=== PATIENT | male | born 1945 | race Caucasian/White ===

== ENCOUNTER 2018-10-01 09:07 | Outpatient (REF) | payer MEDICARE, SELFPAY ==
[2018-10-01 20:58] LABS: ALT 29 U/L (12-78); AST 23 U/L (15-37); Albumin 3.8 g/dL (3.4-5.0); Alkaline Phosphatase 72 U/L (46-116); Anion Gap 10.4 mmol/L (3-11); BUN 23 mg/dL (7-18); Bilirubin, Total 0.6 mg/dL (0.2-1.0); CO2 27.6 mmol/L (21.0-32.0); CREATININE 1.43 mg/dL (0.70-1.30); Calcium 9.4 mg/dL (8.5-10.1); Chloride 104 mmol/L (98-107); Cholesterol 192 mg/dL (50-200); Estimated GFR 48.21 (mL/min/1.73m2); Glucose 99 mg/dL (70-100); HDL Cholesterol 73 mg/dL (40-60); LDL CHOLESTEROL 101 mg/dL (<100); Potassium 4.6 mmol/L (3.5-5.1); Sodium 142 mmol/L (136-145); Total Protein 6.9 g/dL (6.4-8.2); Triglyceride 60 mg/dL (30-150)
== END 2018-10-01 09:27 ==
LOC: NCHCN 09:07
PROVIDERS: Visit Provider Nurse Practitioner Family
DX: I10 Essential (primary) hypertension (principal); E78.00 Pure hypercholesterolemia, unspecified
CPT/HCPCS: 80053; 80061; 83721

== ENCOUNTER 2019-10-23 09:51 | Outpatient (REF) | payer MEDICARE, SELFPAY ==
[2019-10-23 20:46] LABS: BUN 24 mg/dL (7-18); Calcium 9.7 mg/dL (8.5-10.1); Chloride 102 mmol/L (98-107); Estimated GFR 42.24 (mL/min/1.73m2); Glucose 99 mg/dL (74-106); Potassium 4.2 mmol/L (3.5-5.1); Sodium 140 mmol/L (136-145)
[2019-10-23 20:56] LABS: Hemoglobin A1C 5.5 % (3.8-5.6)
== END 2019-10-23 10:11 ==
LOC: NCHCN 09:51
PROVIDERS: Visit Provider Nurse Practitioner Family
DX: R73.03 Prediabetes (principal); I10 Essential (primary) hypertension; N18.9 Chronic kidney disease, unspecified
CPT/HCPCS: 80048; 83036

== ENCOUNTER 2020-10-26 08:25 | Outpatient (REF) | payer MEDICARE, SELFPAY ==
[2020-10-26 22:29] LABS: Hemoglobin A1C 5.4 % (<5.7)
[2020-10-26 22:51] LABS: CREATININE 1.4 mg/dL (0.70-1.30); Calcium 9.3 mg/dL (8.5-10.1); Chloride 106 mmol/L (98-107); Estimated GFR 49.14 (mL/min/1.73m2); Glucose 99 mg/dL (74-106); Potassium 4.6 mmol/L (3.5-5.1); Sodium 145 mmol/L (136-145); Vitamin B12 207 pg/mL (193-986)
[2020-10-26 22:55] LABS: BUN 19 mg/dL (7-18)
== END 2020-10-26 08:26 | disposition home or self-care (01) ==
LOC: NCHCN 08:25
PROVIDERS: Visit Provider Nurse Practitioner Family
DX: R73.03 Prediabetes (principal); I10 Essential (primary) hypertension; N18.9 Chronic kidney disease, unspecified; I25.10 Atherosclerotic heart disease of native coronary artery without angina pectoris; Z86.73 Personal history of transient ischemic attack (TIA), and cerebral infarction without residual deficits; Z79.899 Other long term (current) drug therapy
CPT/HCPCS: 80048; 82607; 83036

== ENCOUNTER 2021-10-26 14:44 | Outpatient (REF) | payer MEDICARE, SELFPAY ==
[2021-10-26 15:13] LABS: HGB 13.6 g/dL (13.5-17.5); MCH 32.8 pg (27.0-33.0); MCHC 33.2 % (32.0-36.0); MCV 99 fL (80-95); MPV 10.7 fL (8.0-11.0); Platelet Count 223 10^3/uL (130-400); RBC 4.15 10^6/uL (4.36-5.78); RDW 13.7 % (11.8-14.1); RDW-SD 50.2 fL; WBC 7.08 10^3/uL (4.4-10.8)
[2021-10-26 15:31] LABS: Hemoglobin A1C 5.5 % (<5.7)
[2021-10-26 15:56] LABS: Anion Gap 11.6 mmol/L (3-11); BUN 24 mg/dL (7-18); CO2 24.4 mmol/L (21.0-32.0); CREATININE 1.4 mg/dL (0.70-1.30); Calcium 9.1 mg/dL (8.5-10.1); Chloride 105 mmol/L (98-107); Estimated GFR 49.01 (mL/min/1.73m2); Glucose 99 mg/dL (74-106); Magnesium 1.5 mg/dL (1.8-2.4); Potassium 4.6 mmol/L (3.5-5.1); Sodium 141 mmol/L (136-145); Vitamin B12 819 pg/mL (193-986)
== END 2021-10-26 14:45 | disposition home or self-care (01) ==
LOC: NCHCN 14:44
PROVIDERS: Visit Provider Nurse Practitioner Family
DX: R73.03 Prediabetes (principal); I10 Essential (primary) hypertension; N18.9 Chronic kidney disease, unspecified; E53.8 Deficiency of other specified B group vitamins; K21.9 Gastro-esophageal reflux disease without esophagitis; Z51.81 Encounter for therapeutic drug level monitoring
CPT/HCPCS: 80048; 85027; 82607; 83036; 83735

== ENCOUNTER 2022-10-27 08:10 | Outpatient (REF) | payer MEDICARE, SELFPAY ==
[2022-10-27 15:33] LABS: Hemoglobin A1C 5.4 % (<5.7)
[2022-10-27 15:46] LABS: ALT 42 U/L (16-63); AST 43 U/L (15-37); Albumin 4.1 g/dL (3.4-5.0); Alkaline Phosphatase 82 U/L (46-116); Anion Gap 14.7 mmol/L (3-11); BUN 18 mg/dL (7-18); Bilirubin, Total 0.4 mg/dL (0.2-1.0); CO2 24.3 mmol/L (21.0-32.0); CREATININE 1.4 mg/dL (0.70-1.30); Calcium 9.9 mg/dL (8.5-10.1); Chloride 104 mmol/L (98-107); Estimated GFR 51.13 (mL/min/1.73m2); Glucose 91 mg/dL (74-106); Magnesium 1.5 mg/dL (1.8-2.4); Potassium 4.2 mmol/L (3.5-5.1); Sodium 143 mmol/L (136-145); Total Protein 8.1 g/dL (6.4-8.2)
== END 2022-10-27 08:11 | disposition home or self-care (01) ==
LOC: NCHCN 08:10
PROVIDERS: Visit Provider Nurse Practitioner Family
DX: R73.03 Prediabetes (principal); E83.42 Hypomagnesemia; I10 Essential (primary) hypertension
CPT/HCPCS: 80053; 83036; 83735

== ENCOUNTER 2023-11-14 07:55 | Outpatient (REF) | payer MEDICARE, SELFPAY ==
[2023-11-14 14:19] LABS: HCT 43.3 % (40.0-50.0); HGB 14.4 g/dL (13.5-17.5); MCH 33.3 pg (27.0-33.0); MCHC 33.3 % (32.0-36.0); MCV 100 fL (80-95); MPV 10.5 fL (8.0-11.0); Platelet Count 225 10^3/uL (130-400); RBC 4.32 10^6/uL (4.36-5.78); RDW 13.4 % (11.8-14.1); WBC 6.02 10^3/uL (4.4-10.8)
[2023-11-14 14:41] LABS: Anion Gap 10.2 mmol/L (3-11); BUN 23 mg/dL (7-18); CO2 26.8 mmol/L (21.0-32.0); CREATININE 1.4 mg/dL (0.70-1.30); Calculated LDL 54 mg/dL (<100); Chloride 105 mmol/L (98-107); Cholesterol 190 mg/dL (<200); Estimated GFR 50.81 (mL/min/1.73m2); Glucose 116 mg/dL (74-106); HDL Cholesterol 126 mg/dL (40-60); Magnesium 1.9 mg/dL (1.8-2.4); Sodium 142 mmol/L (136-145); Triglyceride 53 mg/dL (<150)
[2023-11-14 14:48] LABS: Hemoglobin A1C 5.5 % (<5.7)
== END 2023-11-14 07:56 | disposition home or self-care (01) ==
LOC: NCHCN 07:55
PROVIDERS: Visit Provider Nurse Practitioner Family
DX: I10 Essential (primary) hypertension (principal); N18.31 Chronic kidney disease, stage 3a; I25.10 Atherosclerotic heart disease of native coronary artery without angina pectoris; Z86.73 Personal history of transient ischemic attack (TIA), and cerebral infarction without residual deficits; E83.42 Hypomagnesemia; R73.03 Prediabetes; E78.00 Pure hypercholesterolemia, unspecified
CPT/HCPCS: 80048; 80061; 85027; 83036; 83735

== ENCOUNTER 2024-11-13 10:11 | Outpatient (REF) | payer MEDICARE, SELFPAY ==
[2024-11-13 14:17] LABS: HCT 41.8 % (40.0-50.0); HGB 13.7 g/dL (13.5-17.5); MCH 33.2 pg (27.0-33.0); MCHC 32.8 % (32.0-36.0); MCV 101 fL (80-95); Platelet Count 214 10^3/uL (130-400); RBC 4.13 10^6/uL (4.36-5.78); RDW 13.7 % (11.8-14.1); RDW-SD 51.8 fL; WBC 6.01 10^3/uL (4.4-10.8)
[2024-11-13 14:24] LABS: Anion Gap 7.1 mmol/L (3-11); BUN 26 mg/dL (7-18); CO2 25.9 mmol/L (21.0-32.0); CREATININE 1.4 mg/dL (0.70-1.30); Calcium 9.5 mg/dL (8.5-10.1); Chloride 102 mmol/L (98-107); Estimated GFR 50.49 (mL/min/1.73m2); Glucose 124 mg/dL (74-106); Potassium 5.5 mmol/L (3.5-5.1); Sodium 135 mmol/L (136-145)
[2024-11-13 14:47] LABS: Hemoglobin A1C 5.7 % (<5.7)
== END 2024-11-13 10:12 | disposition home or self-care (01) ==
LOC: NCHCN 10:11
PROVIDERS: Visit Provider Nurse Practitioner Family
DX: R73.03 Prediabetes (principal); N18.9 Chronic kidney disease, unspecified; Z86.73 Personal history of transient ischemic attack (TIA), and cerebral infarction without residual deficits; I25.10 Atherosclerotic heart disease of native coronary artery without angina pectoris
CPT/HCPCS: 80048; 85027; 83036

== ENCOUNTER 2025-05-12 11:41 | Outpatient (REF) | payer MEDICARE, SELFPAY ==
[2025-05-12 14:51] LABS: HCT 41.5 % (40.0-50.0); HGB 13.6 g/dL (13.5-17.5); MCH 33.7 pg (27.0-33.0); MCHC 32.8 % (32.0-36.0); MCV 103 fL (80-95); MPV 10.0 fL (8.0-11.0); Platelet Count 245 10^3/uL (130-400); RBC 4.03 10^6/uL (4.36-5.78); RDW 12.9 % (11.8-14.1); RDW-SD 49.1 fL; WBC 6.14 10^3/uL (4.4-10.8)
[2025-05-12 15:11] LABS: Hemoglobin A1C 5.2 % (<5.7)
[2025-05-12 15:13] LABS: Anion Gap 14.4 mmol/L (3-11); BUN 21 mg/dL (9-23); CO2 21.6 mmol/L (20.0-31.0); Calcium 9.7 mg/dL (8.3-10.6); Chloride 106 mmol/L (98-107); Glucose 89 mg/dL (74-106); Potassium 4.8 mmol/L (3.5-5.1); Sodium 142 mmol/L (136-145)
[2025-05-13 12:14] LABS: Vitamin B12 685 pg/mL (211-911)
== END 2025-05-12 11:42 | disposition home or self-care (01) ==
LOC: NCHCN 11:41
PROVIDERS: PCP Nurse Practitioner Family; Visit Provider Nurse Practitioner Family
DX: I47.20 Ventricular tachycardia, unspecified (principal); R73.03 Prediabetes; I10 Essential (primary) hypertension; I25.10 Atherosclerotic heart disease of native coronary artery without angina pectoris; Z86.73 Personal history of transient ischemic attack (TIA), and cerebral infarction without residual deficits; N18.31 Chronic kidney disease, stage 3a
CPT/HCPCS: 80048; 85027; 82607; 83036